=== PATIENT | male | born 1955 | race Caucasian/White ===

== ENCOUNTER 2024-05-18 14:22 | Outpatient (AMB) | payer MEDICARE, SELFPAY ==
--- NOTE | 2024-05-18 14:25 | A.OFFVIS_ITS ---
Vital Signs 05/18/24 14:40 Height 5 ft 8.9 in Weight 198 lb BMI 29.3 BP 140/73 H Blood Pressure Location Rt brachial Position Sitting Pulse 67 Intake Visit Reasons: Recurrent Perianal Fistula, Hx Perianal Abcess Intake Note: This patient presents for Recurrent Perianal Fistula, Hx Perianal Abscess. Pt c/o; reports no complaints. 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 Accompanied by: Self / Same As Patient Allergies egg Allergy (Severe, Verified 05/18/24 14:29) Stomach Upset lactose Allergy (Verified 05/18/24 14:29) Diarrhea No Known Drug Allergies Allergy (Verified 05/18/24 14:29) None Medication List - Last Reconciled 05/18/24 by Elan Leahy MD amoxicillin-pot clavulanate 875-125 mg 1 tab PO Q12H aspirin (Adult Low Dose Aspirin) 81 mg PO DAILY atorvastatin 10 mg PO DAILY diclofenac sodium 1% 2 grams topical QID dicyclomine 20 mg PO QID ergocalciferol (vitamin D2) 50 mcg PO DAILY lisinopril mg PO loperamide 2 mg PO Q6H PRN promethazine 25 mg PO Q6H PRN HPI HPI Recurrent Perianal Fistula, Hx Perianal Abcess: Details: 69-year-old male self-referred for an anal fistula. He says that about 10 years ago, he had multiple fistulas in the anus and had procedures done in [facility]. He said he had a couple of I and D's done as well as fistula surgery. He is uncertain about the details He says that 1 of the fistulous tract persisted. He says that he continued to have periodic swelling and discharge from this along with pain over the years. His says that recently the episodes have been a little more frequent. He says that last week, he this area on the left posterior aspect became swollen and nolan nful until it drained. He says that he did not want to go to [facility] anymore for his fistula. [facility] Medical History (Updated 05/18/24 @ 15:12 by Elan Leahy MD) Anal fistula Surgical History History of appendectomy (~1979) S/P diskectomy (~1992) History of meniscectomy of right knee (~2011) History of meniscectomy of left knee (~2011) History of esophagogastroduodenoscopy (EGD) (~07/06/16) History of colonoscopy (~07/06/16) H/O colonoscopy (~01/19/19) History of cardiac catheterization (~01/26/19) Social History Alcohol intake: never Patient Tobacco Use Status: Never used Tobacco Review of Systems Const Denies chills and Denies fever(s) Card Denies chest pain, Denies dyspnea and Denies dyspnea on exertion Resp Denies cough, Denies dyspnea and Denies dyspnea on exertion GI Denies hematochezia and Denies change in bowel habits Denies hematuria and Denies difficulty urinating Musc Denies back pain, Reports arthralgias and Denies limited range of motion Neuro Denies focal weakness and Denies convulsions Psych Denies depression and Denies mood swings Physical Exam Vital Signs: Last Vital Signs Pulse 67 05/18/24 14:40 BP 140/73 H 05/18/24 14:40 BMI result Body Mass Index 29.3 Const Other: Looks well General: comfortable and no acute distress Orientation/consciousness: patient oriented x3 Neck Neck: Yes no lymphadenopathy Resp Auscultation: clear to auscultation bilaterally Cardio Rhythm: regular rhythm GI Other: Rectal exam shows mild induration on the left posterior anal area, about 2 cm from the anal verge, no obvious active sinus; scar noted on the right side as well Palpation (GI): Soft to palpation, nontender and no guarding Neuro General: patient oriented x3 Office Procedures Anoscopy He was in marcia-knife position. The anoscope was gently inserted. A full examination of the anal canal was done. He also had mixed internal external hemorrhoids on both the left and right side, moderate-sized. This seems to be a small induration on the left posterior anal canal at the dentate line that is may be suggestive of an internal sinus. There is no tenderness or induration at this time. There were no other lesions. [id number] Assessment & Plan Assessment & Plan (1) Anal fistula: Code(s): K60.3 - Anal fistula Category: Medical Plan: He has had this long history of an anal fistula with multiple surgeries 10 years ago. Examination suggest a fistula tract with the external sinus of the left posterior perianal area. I did explain to him the option of seton placement for this. He will need to have an exam under anesthesia to have this done. He is very hesitant to undergo another surgery for his fistula because of his previous experience. I am going to order for an MRI to define his fistula tracts. I will see him in the office thereafter He is more comfortable with the plan now. Orders: Orders MR pelvis wo con Today K60.3 - Anal fistula Coding Level of Care Code New Pt Level 3 (15935) Diagnoses Anal fistula K60.3 CPT Codes Details - CPT: 64773-[id number] ([id number])
[2024-05-18 14:40] VITALS: BP 140/73; PULSE 67; BMI 29.3
== END 2024-05-18 15:14 | disposition home or self-care (01) ==
PROVIDERS: PCP Internal Medicine; Visit Provider Surgery
DX: K60.3 Anal fistula (principal)
CPT/HCPCS: 46600; 99203

== ENCOUNTER → 2024-05-18 14:22 | Outpatient (BNVA) | payer MEDICARE, SELFPAY | PROVIDERS: PCP Internal Medicine; Visit Provider Surgery | DX: K60.3 Anal fistula (principal) | CPT/HCPCS: 46600; 99202 ==

== ENCOUNTER → 2024-06-18 16:31 | Outpatient (BNV) | payer MEDICARE, SELFPAY | PROVIDERS: PCP Internal Medicine; Visit Provider Radiology Diagnostic Radiology | DX: K60.30 Anal fistula, unspecified (principal) | CPT/HCPCS: 72197 ==

== ENCOUNTER 2024-06-18 16:34 | Outpatient (REF) | payer MEDICARE, SELFPAY ==
--- NOTE | ~2024-06-18 | MR_ITS ---
EXAMINATION: MR PELVIS WITHOUT AND WITH CONTRAST CLINICAL INFORMATION: Anal fistula COMPARISON: None available. TECHNIQUE: Multiplanar, multisequence MRI pelvis with IV contrast. Total of 9 cc of gadolinium, Gadavist, given without reported immediate complications. FINDINGS: Submitted for interpretation on July 26, 2024. There is an heterogeneous focal enhancement extending from the 5 o'clock position of the anus into the skin and deep fat planes of the left gluteus. No peripheral enhancing fluid collection. No peripheral enhancing fluid collections, intrapelvic or perirectal. No signal abnormality or enhancing lesion in the presacral region. Prostate gland measures 4 cm with heterogeneous enhancement. Seminal vesicles demonstrated no enlargement. Fluid-filled bladder. The intrapelvic vessels are patent. Nonspecific prominent lymph nodes, inguinal region. Bone marrow inhomogeneity. MR/MR pelvis wo/w con IMPRESSION: Left-sided posterior, 5 o'clock position, perianal fistula without abscess Electronically signed by: Roly England MD 07/26/2024 12:18 PM EST
[2024-06-18] MEDS: gadobutroL 10 ML VIAL IVPUSH (17:36)
== END 2024-06-18 16:35 | disposition home or self-care (01) ==
LOC: HO.MRI 16:34
PROVIDERS: PCP Internal Medicine; Visit Provider Surgery
DX: K60.30 Anal fistula, unspecified (principal)
CPT/HCPCS: 72197; A9585

== ENCOUNTER 2024-08-03 10:05 | Outpatient (AMB) | payer MEDICARE, SELFPAY ==
--- NOTE | 2024-08-03 10:16 | A.OFFVIS_ITS ---
Vital Signs 08/03/24 10:18 Height 5 ft 8.9 in Weight 202 lb BMI 29.9 BP 145/69 H Blood Pressure Location Rt brachial Position Sitting Pulse 72 Intake Visit Reasons: s/p MRI 06/18 Intake Note: This patient presents for follow-up assessment for MRI results. Pt c/o; MRI follow-up. Magnetic Prospector Required: No Accompanied by: Self / Same As Patient Allergies egg Allergy (Severe, Verified 08/03/24 10:24) Stomach Upset lactose Allergy (Verified 08/03/24 10:24) Diarrhea No Known Drug Allergies Allergy (Verified 08/03/24 10:24) None Medication List - Last Reconciled 08/03/24 by Elan Leahy MD amoxicillin-pot clavulanate 875-125 mg 1 tab PO Q12H aspirin (Adult Low Dose Aspirin) 81 mg PO DAILY atorvastatin 10 mg PO DAILY diclofenac sodium 1% 2 grams topical QID dicyclomine 20 mg PO QID ergocalciferol (vitamin D2) 50 mcg PO DAILY lisinopril mg PO loperamide 2 mg PO Q6H PRN promethazine 25 mg PO Q6H PRN HPI HPI s/p MRI 06/18: Details: He is here for follow-up for his anal fistula. He is here to discuss an MRI which I had ordered. He does have a complex history of an anal fistula and says he had multiple procedures done in [place] about 10 years ago. He has been extremely unhappy with [facility] Medical History Anal fistula Surgical History History of appendectomy (~1979) S/P diskectomy (~1992) History of meniscectomy of right knee (~2011) History of meniscectomy of left knee (~2011) History of esophagogastroduodenoscopy (EGD) (~07/06/16) History of colonoscopy (~07/06/16) H/O colonoscopy (~01/19/19) History of cardiac catheterization (~01/26/19) Social History Alcohol intake: never Patient Tobacco Use Status: Never used Tobacco Review of Systems Const Denies chills and Denies fever(s) GI Denies abdominal pain Psych Reports anxiety (Severe) Physical Exam Vital Signs: Last Vital Signs Pulse 72 08/03/24 10:18 BP 145/69 H 08/03/24 10:18 BMI result Body Mass Index 29.9 Const Other: Extremely anxious General: no acute distress Resp Effort & Inspection: normal respiratory effort GI Other: Rectal exam deferred Assessment & Plan Assessment & Plan (1) Anal fistula: Code(s): K60.3 - Anal fistula Category: Medical Plan: He has hemorrhoid does suggest an anal fistula on the left side. I explained this finding to him. I explained to him the option of exam under anesthesia in the operating room with placement of a seton. I reviewed the technique of this procedure as well as what to expect He is extremely anxious about going for another procedure for his anal fistula. He does not want to schedule for any invasive procedure at this time I did tell him that he is welcome to come back to the office to rediscuss this in the future. Coding Level of Care Code Est Pt Level 2 (13730) Diagnoses Anal fistula K60.3
[2024-08-03 10:18] VITALS: BP 145/69; PULSE 72; BMI 29.9
== END 2024-08-03 10:46 | disposition home or self-care (01) ==
PROVIDERS: PCP Internal Medicine; Visit Provider Surgery
DX: K60.30 Anal fistula, unspecified (principal)
CPT/HCPCS: 99212

== ENCOUNTER → 2024-08-03 10:05 | Outpatient (BNVA) | payer MEDICARE, SELFPAY | PROVIDERS: PCP Internal Medicine; Visit Provider Surgery | DX: K60.30 Anal fistula, unspecified (principal) | CPT/HCPCS: 99212 ==